=== PATIENT | female | born 1985 | race Caucasian/White ===

== ENCOUNTER 2018-03-05 16:05 | Emergency (ER) | payer OTHER ==
[2018-03-05 17:26] LABS: ABS Basophils 0 10^3/ul (0-0.2); ABS Eosinophils 0.2 10^3/ul (0-0.6); ABS Lymphocytes 1.7 10^3/ul (1.0-4.8); ABS Monocytes 0.4 10^3/ul (0-0.8); ABS Neutrophils 3.4 10^3/ul (1.5-7.7); ABS Nucleated RBC 0 10^3/ul; Eosinophil % 3.4 % (0-6); Hematocrit 38 % (35-47); Hemoglobin 12.5 g/dl (12.0-16.0); Lymphocyte % 29.9 % (25-47); Mean Corpuscular HGB Conc 33 g/dl (31-36); Mean Corpuscular Hemoglobin 28 pg (27-31); Mean Corpuscular Volume 84 fL (80-97); Mean Platelet Volume 7.7 um3 (7.4-10.4); Nucleated Red Blood Cells % 0; Platelet Count 168 10^3/ul (150-450); Red Blood Count 4.47 10^6/ul (4.0-5.4); Red Cell Distribution Width 13 % (10.5-15); White Blood Count 5.7 10^3/ul (3.5-10.8)
--- NOTE | 2018-03-05 18:05 | ED ---
Progress - Progress Note Progress Note: patient signed out by Katerina SERRATO pending labs and u/s labs:[id number] hcg u/s:IMPRESSION: 1. SINGLE LIVE INTRAUTERINE GESTATION AT 9 WEEKS AND 2 DAYS BY CROWN-RUMP LENGTH. 2. SMALL SUBCHORIONIC HEMORRHAGE. 3. SUBSEROSAL FIBROID. 4. THE RIGHT OVARY IS NOT VISUALIZED. Course/Dx - Course Course Of Treatment: reassured patient about results. told to follow up with obgyn. patient understand and agrees with plan. - Diagnoses Provider Diagnoses: Intrauterine , Subchorionic hemorrhage Discharge - Sign-Out/Discharge Documenting (check all that apply): Receiving Sign-Out Receiving patient FROM: Katerina Gonzalez - Discharge Plan Condition: Good Disposition: HOME Patient Education Materials: Subchorionic Hemorrhage (ED) Referrals: Eve Bernard NP [Primary Care Provider] - Additional Instructions: Follow up with obgyn as scheduled Return to ED if develop any new or worsening symptoms - Billing Disposition and Condition Condition: GOOD Disposition: HOME
--- NOTE | 2018-03-05 18:48 | RAD ---
HISTORY: 9 weeks , vaginal spotting COMPARISONS: None TECHNIQUE: Multiple transverse and longitudinal ultrasound images were obtained of the pelvis using grayscale, color Doppler, and M-Mode Doppler imaging using the endovaginal transducer. FINDINGS: UTERUS: There is a subserosal fibroid measuring 2.3 x 1.7 x 2.3 cm. GESTATION: There is a single live intrauterine gestation. The crown-rump length measures 2.48 cm for a gestational age of 9 weeks, 2 days. The JAMES is October 04, 2015. cardiac motion is detected at a rate of 185 beats per minute. Gross movement is identified. anatomy cannot be assessed secondary to early dates. The amniotic fluid is qualitatively normal. There is a small subchorionic hemorrhage measuring 1.7 x 0.3 x 1.7 cm. CUL-DE-SAC: There is no free fluid within the cul-de-sac. RIGHT OVARY: The right ovary is not visualized LEFT OVARY: The left ovary measures 4 x 1.8 x 2.3 cm. A corpus luteum is noted. BLADDER: The bladder is not well visualized. IMPRESSION: 1. SINGLE LIVE INTRAUTERINE GESTATION AT 9 WEEKS AND 2 DAYS BY CROWN-RUMP LENGTH. 2. SMALL SUBCHORIONIC HEMORRHAGE. 3. SUBSEROSAL FIBROID. 4. THE RIGHT OVARY IS NOT VISUALIZED.
[2018-03-05 19:08] VITALS: BP 142/77
--- NOTE | 2018-03-06 05:54 | ED ---
- HPI Summary HPI Summary: Patient is a 32-year-old female who is approximately 9 weeks based on LMP arriving to the ED with a concern for embryonic demise. She states she had a mild amount of spotting this afternoon without cramping. She has never had this before in this . Denies any vaginal discharge otherwise. Denies any chance of STDs. Denies any back pain or urinary symptoms. History of late term due to incompatibility with resulting in a D&C. no history of anemia. Takes no medications. Otherwise healthy. 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 - History of Current Complaint Chief Complaint: EDOBProblems Stated Complaint: OB PROBLEM-8 WKS Time Seen by Provider: 03/05/18 16:20 Hx Obtained From: Patient Chief Complaint: Concern for Embryonic Dem Timing: Constant Severity: Moderate Current Severity: Moderate Pain Intensity: 1 Location of Pain: None Character: None Associated Signs and Symptoms: Positive: Vaginal Bleeding or Discharge - scant - Assessment Hx Now: Yes Hx : 3 Hx Para: 1 SAB: 1 History of Ectopic : No Hx Pelvic Inflammatory Disease: No Vaginal Bleeding Amount: Scant Hx Hysterectomy: No History of STI/STD: No - Allergies/Home Medications Allergies/Adverse Reactions: Allergies Allergy/AdvReac Type Severity Reaction Status Date / Time No Known Allergies Allergy Verified 03/05/18 16:14 Home Medications: Home Medications Fluticasone HFA 110 mcg(NF) [Flovent HFA 110 mcg(NF)] 1 puff INH BID 03/05/18 [ History Confirmed 03/05/18] PMH/Surg Hx/FS Hx/Imm Hx Previously Healthy: Yes - Immunization History Hx Pertussis Vaccination: Yes Immunizations Up to Date: Yes Infectious Disease History: No Infectious Disease History: Denies: Traveled Outside the [place] in Last 30 Days - Social History Occupation: Employed Full-time Lives: With Family Alcohol Use: None Hx Substance Use: No Substance Use Type: Reports: None Smoking Status (MU): Never Smoked Tobacco Review of Systems Constitutional: Negative Negative: Fever, Chills, Fatigue Eyes: Negative Cardiovascular: Negative Respiratory: Negative Negative: Abdominal Pain, Vomiting, Diarrhea, Nausea Positive: no symptoms reported, see HPI, other - scant vaginal spotting Skin: Negative Positive: Anxious All Other Systems Reviewed And Are Negative: Yes Physical Exam - Physical Exam Triage Information Reviewed: Yes Vital Signs Reviewed: Yes Appearance: Positive: Well-Appearing, Well-Nourished Skin: Positive: Warm, Skin Color Reflects Adequate Perfusion Head/Face: Positive: Normal Head/Face Inspection Eyes: Positive: EOMI, JEISON Neck: Positive: Nontender, No Lymphadenopathy Respiratory/Lung Sounds: Positive: Clear to Auscultation, Breath Sounds Present Cardiovascular: Positive: RRR, Pulses are Symmetrical in both Upper and Lower Extremities Musculoskeletal: Positive: Strength/ROM Intact Neurological: Positive: Normal, Speech Normal Psychiatric: Positive: Affect/Mood Appropriate AVPU Assessment: Alert Diagnostics - Vital Signs Vital Signs Temp Pulse Resp BP Pulse Ox 03/05/18 19:06 98.6 F 87 20 142/77 99 03/05/18 16:15 98.8 F 105 16 118/79 98 - Laboratory Lab Results: Lab Results 03/05/18 03/05/18 Range/Units 17:16 17:17 WBC 5.7 (3.5-10.8) 10^3/ul RBC 4.47 (4.0-5.4) 10^6/ul Hgb 12.5 (12.0-16.0) g/dl Hct 38 (35-47) % MCV 84 (80-97) fL MCH 28 (27-31) pg MCHC 33 (31-36) g/dl RDW 13 (10.5-15) % Plt Count 168 (150-450) 10^3/ul MPV 7.7 (7.4-10.4) um3 Neut % (Auto) 58.5 (38-83) % Lymph % (Auto) 29.9 (25-47) % [place] % (Auto) 7.5 H (0-7) % Eos % (Auto) 3.4 (0-6) % Baso % (Auto) 0.7 (0-2) % Absolute Neuts (auto) 3.4 (1.5-7.7) 10^3/ul Absolute Lymphs (auto) 1.7 (1.0-4.8) 10^3/ul Absolute Monos (auto) 0.4 (0-0.8) 10^3/ul Absolute Eos (auto) 0.2 (0-0.6) 10^3/ul Absolute Basos (auto) 0 (0-0.2) 10^3/ul Absolute Nucleated RBC 0 10^3/ul Nucleated RBC % 0 Beta HCG, Quant 951182.00 mIU/mL Result Diagrams: 03/05/18 17:17 Lab Statement: Any lab studies that have been ordered have been reviewed, and results considered in the medical decision making process. Course/Dx - Course Course Of Treatment: During the course of treatment, the patient is evaluated for possible demise versus other pathology. Light spotting occurred this afternoon, which quickly dissipated. She is asymptomatic at this time. Denies any back or abdominal pain. Denies any UTI symptoms. Denies any history of chance of STDs. Discussed with patient need for hCG test as well as transvaginal ultrasound. Patient agrees with this plan. She is Rh+ according to her previous . Ultrasound results show a 9 week IUP. Reassured patient about results. told to follow up with obgyn. patient understand and agrees with plan. - Diagnoses Provider Diagnoses: Intrauterine , Subchorionic hemorrhage Discharge - Sign-Out/Discharge Documenting (check all that apply): Discharge/Admit/Transfer - Discharge Plan Condition: Good Disposition: HOME Patient Education Materials: Subchorionic Hemorrhage (ED) Referrals: Eve Bernard NP [Primary Care Provider] - Additional Instructions: Follow up with obgyn as scheduled Return to ED if develop any new or worsening symptoms - Billing Disposition and Condition Condition: GOOD Disposition: HOME
== END 2018-03-05 19:06 | disposition home or self-care (01) ==
LOC: ED 16:05
DX: O20.9 Hemorrhage in early pregnancy, unspecified (principal); O34.11 Maternal care for benign tumor of corpus uteri, first trimester; D25.2 Subserosal leiomyoma of uterus; Z3A.09 9 weeks gestation of pregnancy
CPT/HCPCS: 36415; 76801; 84702; 85025; 99282

== ENCOUNTER 2018-10-10 07:58 | Inpatient (IN) | payer OTHER ==
[2018-10-10] MEDS ORDERED: Lactated Ringers 1000 ML Bag* 1,000 ML IV ONE ×2 (09:26→12:39)
[2018-10-10] MEDS ORDERED: Ondansetron ODT TAB* 4 MG SL PRN (09:28)
--- NOTE | 2018-10-10 09:36 | HP ---
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 Pertinent Past Medical History: See Records - asthma, anxiety Pertinent Past Surgical History: See Records - D&E Pertinent Family History: See Records - asthma - Antepartal Records Antepartal Records: Reviewed, Complicated by: - PACs Review of Systems Constitutional: Uncomfortable CV Complaint: No Respiratory: Shortness of Breath: No Gastrointestinal: No Nausea/Vomiting, Normal Bowel Movement Genitourinary: Leaking Fluid, No Dysuria, No Bleeding Musculoskeletal: No Epigastric Pain, Contractions Neurological: No Headache, No Visual Changes Movement: Normal Exam Allergies/Adverse Reactions: Allergies No Known Allergies Allergy (Verified 03/05/18 16:14) T-98.5, P-107, R-20, BP-116/84, O2-97% - Measurements Height: 5 ft 3 in Weight: 70.307 kg Weight in lbs: 155.675101 Body Mass Index (BMI): 27.4 Pre- Weight: 60.781 kg Weight Gained This : 21 lbs and 0 ozs - Exam Breast: Breast Exam Deferred CVA: No CVA Tenderness Extremities: No Edema Heart: Normal Rhythm/Heart Sounds HEENT: No Significant Findings Lungs: Clear Bilaterally Rectal: Rectal Exam Deferred Reflexes: DTR 2+ Thyroid: No Thyromegaly - Abdominal Exam Abdomen Exam: Non-Tender, Fundal Height Consistent with Dates - Ultrasound/Biophysical Profile Ultrasound Status: Not Done Targeted Exam Findings See L&D Outpatient Visit Provider Note for Findings: N/A Estimated Weight: 7.5# Cervical Exam: 2cm Effacement: 70% Station: -1 Presenting Part: Vertex Membrane Status: SROM Amniotic Fluid Evaluation: Gross Rupture Bleeding/Discharge: None EFM Findings - External Monitor Findings Baseline Heart Rate: 140 External Monitor Findings: Accelerations Present, No Pattern of Variable or Late Decelerations, Variability Moderate, Baseline Stable Contractions: Regular, Mild, Moderate, 45-90 Seconds Contraction Frequency: 3 minutes Assessment/Plan - Assessment 32 year old at 40 1/7 weeks gestation with ruptured membranes, no evidence of acidemia, in labor, GBS negative - Obstetrical Risk Factors Obstetrical Risk Factors: Post-Dates - Plan Plan: Admit - Anticipate Vaginal Delivery - Date/Time of Admission Date of Admission: 10/10/18 Time of Admission: 08:35
[2018-10-10] MEDS ORDERED: Lactated Ringers 1000 ML Bag* 1,000 ML IV SCH ×3 (10:00→16:00)
[2018-10-10] MEDS ORDERED: OBEPIDURAL* 250 ML EPIDURAL ONE (11:45)
[2018-10-10 11:59] LABS: ABS Basophils 0.1 10^3/ul (0-0.2); ABS Eosinophils 0.1 10^3/ul (0-0.6); ABS Lymphocytes 1.4 10^3/ul (1.0-4.8); ABS Monocytes 0.4 10^3/ul (0-0.8); ABS Neutrophils 8.1 10^3/ul (1.5-7.7); ABS Nucleated RBC 0 10^3/ul; Eosinophil % 0.5 %; Hematocrit 36 % (35-47); Hemoglobin 12.1 g/dl (12.0-16.0); Lymphocyte % 14.1 %; Mean Corpuscular HGB Conc 34 g/dl (31-36); Mean Corpuscular Hemoglobin 30 pg (27-31); Mean Corpuscular Volume 88 fL (80-97); Mean Platelet Volume 8.6 fL (7.4-10.4); Nucleated Red Blood Cells % 0; Platelet Count 152 10^3/ul (150-450); Red Blood Count 4.08 10^6/ul (4.00-5.40); Red Cell Distribution Width 16 % (10.5-15); White Blood Count 10.1 10^3/ul (3.5-10.8)
[2018-10-10] MEDS ORDERED: EPHEDrine (Pressors)* 50 MG/ML VIAL IV PUSH PRN ×2 (12:39)
[2018-10-10] MEDS ORDERED: Phenylephrine IV* 40 MCG/ML 10 ML SYRINGE IV PUSH PRN (12:39)
[2018-10-10] MEDS ORDERED: Sodium Citrate/Citric Acid* 15 ML UDC PO PRN (12:39)
[2018-10-10] MEDS ORDERED: Lactated Ringers 1000 ML Bag* 500 ML IV PRN ×2 (12:39)
[2018-10-10] MEDS ORDERED: Famotidine TAB* 20 MG PO PRN (12:39)
[2018-10-10] MEDS ORDERED: OBEPIDURAL* 250 ML EPIDURAL SCH (13:00)
[2018-10-10] MEDS: Phenylephrine IV* 40 MCG/ML 10 ML SYRINGE IV PUSH PRN ×2 (13:01→13:11)
[2018-10-10] MEDS ORDERED: Oxytocin in LR* 20 UNITS/1,000 ML BAG IVPB ONE (14:09)
[2018-10-10] MEDS ORDERED: Acetaminophen TAB* 325 MG PO PRN (15:10)
[2018-10-10] MEDS ORDERED: Glycerin ADULT SUPP PR PRN (15:10)
[2018-10-10] MEDS ORDERED: Witch Hazel PAD* JAR TOPICAL PRN (15:10)
[2018-10-10] MEDS ORDERED: Dibucaine 1% 28.35 GM TUBE PR PRN (15:10)
--- NOTE | 2018-10-10 15:19 | PROCNOTE ---
[facility] OB: Delivery Note - Delivery A Date of : 10/10/18 Time of : 14:07 [place] Sex: Male Weight at : 3.458 kg Score 1 Minute: 8 Score 5 Minutes: 9 Gestational Age in Weeks and Days at Delivery: 40 Weeks and 1 Days Delivery Method: Spontaneous Vaginal Labor: Spontaneous Did Patient attempt ?: N/A, No Previous Amniotic Fluid: Clear Estimated Blood Loss: 300 Anesthesia/Analgesia: CEI for Labor Delivered By: Yas Bonilla - Nursery Level of Nursery: Regular/Bedside - Perineum Perineal Injury: 1st Degree Perineal Repair: By Delivering Practioner - Events Delivery Events of Note: Pitocin Only After Delivery, Supplemental O2 to Mother - Additional Delivery Notes Additional Delivery Notes: Pt admitted to labor and delivery with ruptured membranes and actively khari. Pt made steady progress and eventually requested and received an epidural for pain relief. Soon after epidural FHR began exhibiting variable decelerations as well as some prolonged decelerations into the low 100's. O2, position changes, IVF boluses, and phenylephrine were used and the FHR recovered , although baby continued to have variable decels throughout the rest of the labor. Dr. Duhnam called in to unit and he remained in house until after the delivery of the placenta. Pt checked at time of initial decel and found to be 8cm dilated. She quickly progressed to full dilation and began to push with coaching. Pt pushed with good effort and consistent descent. brought to then had slow, controlled delivery of the head, OA to DEBORAH. Double nuchal cord noted, 's body delivered then cord reduced. placed on maternal abdomen with vigorous cry, HR>100. After cord pulsation ceased, cord clamped x2 and cut by 's father. Placenta soon delivered spontaneously, seamus side, intact, and oxytocin initiated via IV. Perineal examination revealed 1st degree laceration, repaired using 3-0 Rapide with good tissue approximation and hemostasis. Infant and mother stable at this time, anticipate normal course.
[2018-10-10] MEDS ORDERED: Oxytocin in LR* 20 UNITS/1,000 ML BAG IVPB SCH (16:00)
[2018-10-10] MEDS: Ibuprofen TAB* 600 MG PO PRN (20:04)
[2018-10-10] MEDS: Docusate CAP* 100 MG PO SCH (20:04)
[2018-10-11] MEDS: Ibuprofen TAB* 600 MG PO PRN ×2 (02:06→08:28)
[2018-10-11 06:17] LABS: ABS Basophils 0 10^3/ul (0-0.2); ABS Eosinophils 0.1 10^3/ul (0-0.6); ABS Monocytes 0.7 10^3/ul (0-0.8); ABS Neutrophils 9.1 10^3/ul (1.5-7.7); ABS Nucleated RBC 0 10^3/ul; Eosinophil % 0.6 %; Hematocrit 32 % (35-47); Lymphocyte % 17.1 %; Mean Corpuscular HGB Conc 34 g/dl (31-36); Mean Corpuscular Hemoglobin 30 pg (27-31); Mean Corpuscular Volume 88 fL (80-97); Mean Platelet Volume 8.2 fL (7.4-10.4); Nucleated Red Blood Cells % 0.1; Platelet Count 134 10^3/ul (150-450); Red Blood Count 3.62 10^6/ul (4.00-5.40); Red Cell Distribution Width 16 % (10.5-15); White Blood Count 11.9 10^3/ul (3.5-10.8)
[2018-10-11 07:38] VITALS: BP 99/59
[2018-10-11] MEDS: Docusate CAP* 100 MG PO SCH (08:27)
[2018-10-11] MEDS ORDERED: Ferrous Gluconate TAB* 324 MG TAB PO SCH (09:00)
== END 2018-10-11 14:30 | disposition home or self-care (01) | DRG 807 ==
LOC: MCHOBOUT 07:58 → MCHOB 08:35
PROVIDERS: ADMIT Midwife; ATTEND Midwife
PROC: 10E0XZZ Delivery of Products of Conception, External Approach (ICD-10-PCS; principal; 2018-10-10)
PROC: 0HQ9XZZ Repair Perineum Skin, External Approach (ICD-10-PCS; 2018-10-10)
DX: O48.0 Post-term pregnancy (principal); Z37.0 Single live birth; O70.0 First degree perineal laceration during delivery; Z3A.40 40 weeks gestation of pregnancy
CPT/HCPCS: 36415; 85025; 86850; 86900; 86901; A9270-GY